=== PATIENT | female | born 1950 | race Caucasian/White ===

== ENCOUNTER → 2017-04-16 | Outpatient (CLI) | payer OTHER | LOC: CIMAGING 09:55 | PROVIDERS: ATTEND Internal Medicine | DX: Z12.31 Encounter for screening mammogram for malignant neoplasm of breast (principal); Z85.3 Personal history of malignant neoplasm of breast | CPT/HCPCS: G0202 ==

== ENCOUNTER → 2018-04-20 | Outpatient (CLI) | payer OTHER | LOC: CIMAGING 08:32 | PROVIDERS: ATTEND Internal Medicine | DX: Z12.31 Encounter for screening mammogram for malignant neoplasm of breast (principal); Z85.3 Personal history of malignant neoplasm of breast ==

== ENCOUNTER → 2019-02-10 | Outpatient (CLI) | payer OTHER | LOC: EMCIMAGING 09:20 | PROVIDERS: ATTEND Internal Medicine | DX: M85.852 Other specified disorders of bone density and structure, left thigh (principal); E11.9 Type 2 diabetes mellitus without complications; I10 Essential (primary) hypertension; E78.5 Hyperlipidemia, unspecified; Z51.81 Encounter for therapeutic drug level monitoring; Z79.899 Other long term (current) drug therapy; Z78.0 Asymptomatic menopausal state; Z85.3 Personal history of malignant neoplasm of breast; M81.0 Age-related osteoporosis without current pathological fracture | CPT/HCPCS: 77080-PN ==